=== PATIENT | female | born 1955 | race Caucasian/White ===

== ENCOUNTER → 2024-10-28 06:33 | Outpatient (REF) | payer MEDICARE, SELFPAY | LOC: MRI 06:33 | PROVIDERS: ATTENDING PHYSICIAN Physician Assistant; FAMILY PHYSICIAN Family Medicine | DX: M79.18 Myalgia, other site (principal) | CPT/HCPCS: 72195 ==

== ENCOUNTER → 2024-11-03 07:03 | Outpatient (REF) | payer MEDICARE, SELFPAY | LOC: HWRCS 07:03 | PROVIDERS: ATTENDING PHYSICIAN Internal Medicine Cardiovascular Disease; FAMILY PHYSICIAN Family Medicine | DX: R07.2 Precordial pain (principal); R94.31 Abnormal electrocardiogram [ECG] [EKG] | CPT/HCPCS: 93306 ==

== ENCOUNTER → 2024-11-08 06:51 | Outpatient (REF) | payer MEDICARE, SELFPAY | LOC: MRI 3T 06:51 | PROVIDERS: ATTENDING PHYSICIAN Physician Assistant; FAMILY PHYSICIAN Family Medicine | DX: M54.16 Radiculopathy, lumbar region (principal) | CPT/HCPCS: 72148 ==

== ENCOUNTER → 2024-11-09 07:00 | Outpatient (REF) | payer MEDICARE, SELFPAY | LOC: HWRCS 07:00 | PROVIDERS: ATTENDING PHYSICIAN Internal Medicine Cardiovascular Disease; FAMILY PHYSICIAN Family Medicine | DX: R07.2 Precordial pain (principal); R94.31 Abnormal electrocardiogram [ECG] [EKG]; I25.10 Atherosclerotic heart disease of native coronary artery without angina pectoris | CPT/HCPCS: 78452; 93017; A9500; J2785 ==